=== PATIENT | male | born 1980 | race Caucasian/White ===

== ENCOUNTER 2017-09-13 18:18 | Emergency (ER) | payer OTHER ==
[~2017-09-13] VITALS: Ht 188 cm; Wt 118.9 kg
[2017-09-13 18:23] VITALS: TEMP 36.9; Ht 188 cm; Wt 118.9 kg
[2017-09-13] MEDS ORDERED: DIPHTHERIA/TETANUS/PERTUSSIS 0.5 ML SYR/VIAL IM. ONE (18:30)
[2017-09-13] MEDS ORDERED: SUMA100T16 PO (19:09)
[2017-09-13] MEDS ORDERED: MoRPHine SULFATE 4 MG/ML 1 ML CARP\\VIAL IV STA (19:22)
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
[2017-09-13 19:44] VITALS: O2SAT 98
[2017-09-13] MEDS ORDERED: OXYC-106 PO (19:56)
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
[2017-09-13] MEDS ORDERED: PERCOCET HOME PACK PO ONE (20:15)
[2017-09-13 20:35] VITALS: BP 135/90; PULSE 67
== END 2017-09-13 21:00 | disposition home or self-care (01) ==
LOC: EDBD 18:18 → C.EDA 18:19
DX: S22.42XA Multiple fractures of ribs, left side, initial encounter for closed fracture (principal); T14.8XXA Other injury of unspecified body region, initial encounter; T79.7XXA Traumatic subcutaneous emphysema, initial encounter; V29.88XA Motorcycle rider (driver) (passenger) injured in other specified transport accidents, initial encounter; Z23 Encounter for immunization